=== PATIENT | female | born 1995 | race Caucasian/White ===

== ENCOUNTER 2019-09-10 21:52 | Emergency (ER) | payer BC ==
[~2019-09-10] VITALS: Ht 162.6 cm; Wt 59.0 kg
[2019-09-10] MEDS ORDERED: IBUPROFEN 600 MG TABLET PO ONE (22:45)
[2019-09-10] MEDS ORDERED: IBUPROFEN 600 MG TABLET ONE (22:47)
--- NOTE | 2019-09-10 23:03 | NUR ---
Patient discharged to home in stable conditon. Written and verbal after care instructions given. Patient verbalizes understanding of instructions. AMBULATORY W/ STABLE GAIT ALL BELONGINGS W/ PT PT ABLE TO TOLERATE GAIT TRAINING
[2019-09-10 23:05] VITALS: BP 128/66
== END 2019-09-10 23:05 | disposition home or self-care (01) ==
LOC: ER 21:55
DX: M72.2 Plantar fascial fibromatosis (principal); F12.10 Cannabis abuse, uncomplicated; F17.200 Nicotine dependence, unspecified, uncomplicated
CPT/HCPCS: A4663